=== PATIENT | female | born 1990 | race Hispanic/Latino ===

== ENCOUNTER 2018-01-21 09:54 | Emergency (ER) | payer OTHER ==
[2018-01-21 11:04] LABS: KETONE, URINE AUTO RFX NEGATIVE (NEGATIVE); MUCUS, URINE RFX SMALL (NEGATIVE); NITRITE, URINE AUTO RFX NEGATIVE (NEGATIVE); RBC, URINE AUTO RFX 2 /HPF (0-3); SPECIFIC GRAVITY UR AUTO RFX 1.026 (1.002-1.035); SQUAM EPITHELIAL CELL UR AURFX 4 /HPF (0-6); WBC, URINE AUTO RFX 4 /HPF (0-3)
[2018-01-21 11:05] LABS: LEUKOCYTE ESTERASE UR AUTO RFX 2+ (NEGATIVE)
[2018-01-21 12:37] LABS: CHLAMYDIA DNA AMPLIFICATION NEGATIVE (NEGATIVE); GC DNA AMPLIFICATION NEGATIVE (NEGATIVE)
== END 2018-01-21 11:48 | disposition home or self-care (01) ==
LOC: M ED 09:54
DX: N76.5 Ulceration of vagina (principal); Z11.3 Encounter for screening for infections with a predominantly sexual mode of transmission; E05.90 Thyrotoxicosis, unspecified without thyrotoxic crisis or storm
CPT/HCPCS: 81001

== ENCOUNTER → 2018-06-03 | Outpatient (REF) | payer OTHER | LOC: M LAB REF 17:02 | DX: R87.613 High grade squamous intraepithelial lesion on cytologic smear of cervix (HGSIL) (principal) | CPT/HCPCS: G0123 ==

== ENCOUNTER → 2018-09-23 | Outpatient (REF) | payer OTHER | LOC: M LAB REF 19:28 | PROVIDERS: ATTEND Obstetrics & Gynecology | DX: D06.9 Carcinoma in situ of cervix, unspecified (principal) ==

== ENCOUNTER → 2018-10-18 | Outpatient (CLI) | payer OTHER ==
[2018-10-18 17:31] LABS: FREE T4 1.31 NG/DL (0.76-1.46); THYROID STIMULATING HORMONE 1.56 uIU/ML (0.358-3.740)
[2018-10-18 17:33] LABS: ESTRADIOL 27.5 PG/ML; LUTEINIZING HORMONE 3.9 mIU/mL
[2018-10-18 17:34] LABS: FOLLICLE STIMULATING HORMONE 6.1 mIU/mL
== END ==
LOC: M LAB 16:38
PROVIDERS: ATTEND Obstetrics & Gynecology
DX: N97.9 Female infertility, unspecified (principal)

== ENCOUNTER → 2018-11-05 | Outpatient (CLI) | payer OTHER | LOC: M LAB 15:09 | PROVIDERS: ATTEND Obstetrics & Gynecology | DX: N97.9 Female infertility, unspecified (principal) ==

== ENCOUNTER → 2019-04-07 | Outpatient (CLI) | payer OTHER ==
[2019-04-07 11:38] LABS: FREE T4 1.1 NG/DL (0.76-1.46); THYROID STIMULATING HORMONE 2.94 uIU/ML (0.358-3.740)
== END ==
LOC: M LAB 09:47
PROVIDERS: ATTEND Obstetrics & Gynecology
DX: Z13.29 Encounter for screening for other suspected endocrine disorder (principal); N76.0 Acute vaginitis
CPT/HCPCS: 36415; 84439; 84443; G0123

== ENCOUNTER 2019-07-19 19:06 | Emergency (ER) | payer OTHER ==
[~2019-07-19] VITALS: Ht 165.1 cm; Wt 71.8 kg
[2019-07-19] MEDS ORDERED: DAYT1CAP9 PO (19:18)
[2019-07-19] MEDS ORDERED: IBUPROFEN 800 MG TAB PO ONE (19:30)
[2019-07-19 20:04] LABS: INFLUENZA A AMPLIFICATION NEGATIVE (NEGATIVE); INFLUENZA B AMPLIFICATION NEGATIVE (NEGATIVE)
[2019-07-19] MEDS ORDERED: PENI500T PO (20:30)
[2019-07-19] MEDS ORDERED: PENICILLIN V POTASSIUM 500 MG TAB PO ONE (20:30)
[2019-07-19 20:33] VITALS: BP 132/72
== END 2019-07-19 20:44 | disposition home or self-care (01) ==
LOC: M ED 19:06
DX: J02.0 Streptococcal pharyngitis (principal); E05.90 Thyrotoxicosis, unspecified without thyrotoxic crisis or storm

== ENCOUNTER → 2020-09-06 | Outpatient (REF) | payer OTHER ==
[~2020-09-06] MED LIST: DAYT1CAP9 PO; PENI500T PO
[2020-09-06 18:22] LABS: HCG, SERUM QUALITATIVE POSITIVE (NEGATIVE)
[2020-09-06 18:32] LABS: HCG, SERUM QUANTITATIVE 688 MIU/ML
== END ==
LOC: M LAB REF 17:11
PROVIDERS: ATTEND Physician Assistant Medical
DX: Z32.00 Encounter for pregnancy test, result unknown (principal)

== ENCOUNTER 2020-09-11 13:09 | Emergency (ER) | payer OTHER ==
[~2020-09-11] VITALS: Ht 165.1 cm; Wt 70.6 kg
[2020-09-11 14:45] LABS: BASO # 0.1 10^3/uL (0.0-0.2); BASO % 0.5 % (0.0-1.0); EOS # 0.1 10^3/uL (0.0-0.5); EOS % 0.5 % (0.0-3.0); HEMATOCRIT 44.9 % (36.0-47.0); LYMPH # 2.1 10^3/uL (1.5-5.0); LYMPH % 18.6 % (24.0-44.0); MEAN CORPUSCULAR HEMOGLOBIN 29.1 pg (27.0-33.0); MEAN CORPUSCULAR HGB CONC 33.4 g/dl (32.0-36.5); MONO # 0.6 10^3/uL (0.0-0.8); MONO % 5.5 % (2.0-8.0); NEUTROPHILS # 8.2 10^3/uL (1.5-8.5); NEUTROPHILS % 74.6 % (36.0-66.0); PLATELET COUNT, AUTOMATED 334 10^3/uL (150-450); RED BLOOD COUNT 5.16 10^6/uL (4.00-5.40); WHITE BLOOD COUNT 11.1 10^3/uL (4.0-10.0)
--- NOTE | 2020-09-11 15:24 | REP ---
INDICATION: VAGINAL BLEEDING. COMPARISON: None. TECHNIQUE: Real-time sonographic evaluation of pelvis performed utilizing transabdominal and endovaginal technique. FINDINGS: Uterus measures 8.0 x 4.2 x 4.7 cm. The endometrial echo complex measures 8 mm. No gestational sac is seen in the endometrial canal. The right ovary is not visualized. Left ovary measures 2.3 x 2.7 x 2.0 cm with a small cystic structure 1.9 x 1.9 x 1.2 cm, probably representing a corpus luteum. There is no evidence of left ovarian torsion with duplex Doppler evaluation. IMPRESSION: No gestational sac seen in the uterus. Small cystic structure left ovary 1.9 cm. No left ovarian torsion. Right ovary not seen. Otherwise no evidence of adnexal mass or free fluid. Differential diagnosis would include very early intrauterine , missed AB, or ectopic . Suggest correlation with serial quantitative beta HCG values, and follow-up ultrasound if necessary. <Electronically signed by Pérez Bustillo > 09/11/20 [id number]
[2020-09-11 15:57] LABS: CHLAMYDIA DNA AMPLIFICATION NEGATIVE (NEGATIVE); GC DNA AMPLIFICATION NEGATIVE (NEGATIVE)
[2020-09-11 16:10] VITALS: BP 139/68
[2020-09-11] MEDS ORDERED: METR0.7533 TOP (16:31)
== END 2020-09-11 16:47 | disposition home or self-care (01) ==
LOC: M ED 13:09
DX: O20.9 Hemorrhage in early pregnancy, unspecified (principal); O23.591 Infection of other part of genital tract in pregnancy, first trimester; O34.81 Maternal care for other abnormalities of pelvic organs, first trimester; N83.201 Unspecified ovarian cyst, right side; Z3A.00 Weeks of gestation of pregnancy not specified

== ENCOUNTER → 2020-09-13 | Outpatient (CLI) | payer OTHER ==
[~2020-09-13] MED LIST changes: +METR0.7533 TOP
== END ==
LOC: M LAB 14:13
PROVIDERS: ATTEND Physician Assistant
DX: Z32.00 Encounter for pregnancy test, result unknown (principal)

== ENCOUNTER → 2020-12-14 | Outpatient (CLI) | payer OTHER | LOC: M WHC 09:19 | PROVIDERS: ATTEND Obstetrics & Gynecology | DX: Z53.8 Procedure and treatment not carried out for other reasons (principal) ==

== ENCOUNTER → 2020-12-28 | Outpatient (CLI) | payer OTHER ==
--- NOTE | 2020-12-29 03:40 | REP ---
INDICATION: ANATOMY COMPARISON: None. TECHNIQUE: Transabdominal obstetrical ultrasound with color Doppler evaluation. FINDINGS: Examination demonstrates a single live intrauterine in variable presentation. motion is identified by technologist. Placenta is noted anterior and grade 1 without evidence for placenta previa or abruption. Amniotic fluid volume is normal. Cervix measures 3.8 cm in length and appears closed.. Selected gestational age: 20 weeks 5 days with MARCELINO 05/12/2021. Gestational age by current measurements 20 weeks 4 days with MARCELINO 05/13/2021. FHR equals 140 beats per minute. Estimated weight 368 grams (42ndpercentile). Anatomical assessment demonstrates normal structures including cranium, choroid plexus, cavum, cerebellum/posterior fossa, facial features, lungs, four-chamber heart/ventricular outflow tracts, diaphragm, stomach, cord insertion, kidneys/bladder, spine, and extremities. Two vessel cord noted. IMPRESSION: Single live intrauterine in variable presentation. Two vessel cord. Remainder of the anatomical assessment is complete and normal. <Electronically signed by Herrera Moise > 12/29/20 [id number]
== END ==
LOC: M WHC 10:06
PROVIDERS: ATTEND Obstetrics & Gynecology
DX: Z36.89 Encounter for other specified antenatal screening (principal); Z3A.20 20 weeks gestation of pregnancy

== ENCOUNTER → 2021-01-13 | Outpatient (REF) | payer OTHER | LOC: M PLALAB 09:49 | PROVIDERS: ATTEND Obstetrics & Gynecology | DX: Z3A.22 22 weeks gestation of pregnancy (principal); Z53.8 Procedure and treatment not carried out for other reasons ==

== ENCOUNTER → 2021-02-07 | Outpatient (CLI) | payer OTHER ==
[2021-02-07 10:48] LABS: HEMATOCRIT 36.7 % (36.0-47.0); HEMOGLOBIN 11.7 g/dl (12.0-15.5); MEAN CORPUSCULAR HEMOGLOBIN 28.5 pg (27.0-33.0); MEAN CORPUSCULAR HGB CONC 31.9 g/dl (32.0-36.5); MEAN CORPUSCULAR VOLUME 89.3 fl (80.0-96.0); PLATELET COUNT, AUTOMATED 244 10^3/uL (150-450); RED BLOOD COUNT 4.11 10^6/uL (4.00-5.40); WHITE BLOOD COUNT 7.5 10^3/uL (4.0-10.0)
[2021-02-07 11:23] LABS: FREE T4 0.87 NG/DL (0.76-1.46); THYROID STIMULATING HORMONE 1.85 uIU/ML (0.358-3.740)
== END ==
LOC: M PLALAB 07:38
PROVIDERS: ATTEND Obstetrics & Gynecology
DX: Z34.92 Encounter for supervision of normal pregnancy, unspecified, second trimester (principal); Z3A.22 22 weeks gestation of pregnancy

== ENCOUNTER → 2021-02-07 | Outpatient (REF) | payer OTHER ==
[~2021-02-07] MED LIST changes: +ASPI81CH33 PO; +PRENTAB9 PO; +VALT500T PO
== END ==
LOC: M PLALAB 14:14
PROVIDERS: ATTEND Obstetrics & Gynecology
DX: O99.810 Abnormal glucose complicating pregnancy (principal); Z53.8 Procedure and treatment not carried out for other reasons

== ENCOUNTER → 2021-02-09 | Outpatient (CLI) | payer OTHER ==
[~2021-02-09] MED LIST changes: -ASPI81CH33 PO; -PRENTAB9 PO; -VALT500T PO
== END ==
LOC: M WHC 15:38
PROVIDERS: ATTEND Obstetrics & Gynecology
DX: Z34.82 Encounter for supervision of other normal pregnancy, second trimester (principal); Z3A.26 26 weeks gestation of pregnancy

== ENCOUNTER → 2021-02-15 | Outpatient (CLI) | payer OTHER ==
[~2021-02-15] MED LIST changes: +ASPI81CH33 PO; +PRENTAB9 PO; +VALT500T PO
== END ==
LOC: M WHC 10:50
PROVIDERS: ATTEND Obstetrics & Gynecology
DX: Z36.89 Encounter for other specified antenatal screening (principal); Z3A.28 28 weeks gestation of pregnancy

== ENCOUNTER → 2021-03-01 | Outpatient (CLI) | payer OTHER ==
[~2021-03-01] MED LIST changes: -ASPI81CH33 PO; -PRENTAB9 PO; -VALT500T PO
== END ==
LOC: M LAB 07:14
PROVIDERS: ATTEND Obstetrics & Gynecology
DX: O99.810 Abnormal glucose complicating pregnancy (principal)

== ENCOUNTER → 2021-03-01 | Outpatient (CLI) | payer OTHER ==
--- NOTE | 2021-03-01 22:35 | REP ---
INDICATION: GROWTH/2 VESSEL CORD COMPARISON: 02/15/2021 TECHNIQUE: Transabdominal obstetrical ultrasound with color Doppler evaluation. FINDINGS: Examination demonstrates a single live intrauterine in cephalic presentation. motion is identified by technologist. Placenta is noted anterior and grade 1 without evidence for placenta previa or abruption. Amniotic fluid volume is normal. Cervix measures 3.0 cm in length and appears closed.. Selected gestational age: 29 weeks 5 days with MARCELINO 05/12/2021. Gestational age by current measurements 30 weeks 5 days with MARCELINO 05/05/2021. FHR equals 128 beats per minute. BPD: 8.0 cm at 32 weeks 0 days HC: 27.9 cm at 30 weeks 4 days AC: 26.6 cm at 30 weeks 5 days FL: 5.9 cm at 30 weeks 5 days HL: 5.1 cm at 30 weeks 0 days HC/AC: 1.05 Estimated weight 1640 grams (75thpercentile). TREE: 15.6 cm IMPRESSION: Single live intrauterine in cephalic presentation demonstrating appropriate interval growth. <Electronically signed by Herrera Moise > 03/01/21 [id number]
== END ==
LOC: M WHC 12:47
PROVIDERS: ATTEND Obstetrics & Gynecology
DX: Z36.89 Encounter for other specified antenatal screening (principal); Z3A.29 29 weeks gestation of pregnancy

== ENCOUNTER → 2021-03-15 | Outpatient (CLI) | payer OTHER ==
--- NOTE | 2021-03-15 11:55 | REP ---
INDICATION: GROWTH 2 VESSEL CORD COMPARISON: 03/01/2021 TECHNIQUE: Transabdominal obstetrical ultrasound with color Doppler evaluation. FINDINGS: Examination demonstrates a single live intrauterine in cephalic presentation. motion is identified by technologist. Placenta is noted anterior and grade 1 without evidence for placenta previa or abruption. Amniotic fluid volume is normal. Cervix measures 3.1 cm in length and appears closed. Known 2 vessel cord again noted.. Selected gestational age: 31 weeks 5 days with MARCELINO 05/12/2021. Gestational age by current measurements 32 weeks 5 days with MARCELINO 05/05/2021. FHR equals 143 beats per minute. BPD: 8.2 cm at 32 weeks 6 days HC: 29.2 cm at 32 weeks 1 day AC: 30.5 cm at 34 weeks 3 days FL: 6.2 cm at 32 weeks 0 days HL: 5.5 cm at 32 weeks 0 days HC/AC: 0.96 Estimated weight 2175 grams (87thpercentile). TREE: 16.3 cm IMPRESSION: Single live advanced gestation in cephalic presentation. Known 2 vessel cord. Amniotic fluid index normal. Growth is within normal range. <Electronically signed by Herrera Moise > 03/15/21 [id number]
== END ==
LOC: M WHC 10:54
PROVIDERS: ATTEND Obstetrics & Gynecology
DX: Z36.89 Encounter for other specified antenatal screening (principal); Z3A.31 31 weeks gestation of pregnancy

== ENCOUNTER → 2021-04-13 | Outpatient (REF) | payer OTHER | LOC: M SFHCWAGY 13:52 | PROVIDERS: ATTEND Obstetrics & Gynecology | DX: Z36.85 Encounter for antenatal screening for Streptococcus B (principal) ==

== ENCOUNTER → 2021-04-14 | Outpatient (CLI) | payer OTHER ==
--- NOTE | 2021-04-14 15:20 | REP ---
INDICATION: GROWTH, HYPERTENSTION, 2 VESSEL CORD. COMPARISON: Comparison study March 15, 2021. TECHNIQUE: Transabdominal obstetric sonography. FINDINGS: Scanning through the gravid uterus demonstrates a viable single intrauterine gestation in cephalic lie. motion is observed and heart rate is recorded at 165 beats per minute. A anterior placenta is seen, grade 1, without evidence of placenta previa. Closed cervical length is measured at 3.7 cm transabdominally. No extrauterine abnormality is observed. Amniotic fluid is subjectively normal TREE is 14.2 cm.. Two vessel umbilical cord seen. Biometry chart: BPD 9.2 cm, 37 weeks 3 days Head circumference 33.1 cm, 37 weeks 5 days Abdominal circumference 32.8 cm, 36 weeks 5 days Femur length 7.1 cm, 36 weeks 2 days Humeral length 6.3 cm, 36 weeks 4 days HC AC ratio normal 1.01 Cephalic index normal 0.79 Estimated weight 3043 g, 6 lb 11 oz, 73rd percentile for 36 weeks 0 days Biophysical profile score 8 out of a possible 8 IMPRESSION: Viable single intrauterine gestation at 37 weeks 0 days by today's composite sonographic criteria. MARCELINO by today's sonography May 05, 2021. No complication identified. Expected gestational age estimate from known MARCELINO of May 12, 2021 is 36 weeks 0 days. <Electronically signed by Indra Rodriguez > 04/14/21 [id number]
== END ==
LOC: M WHC 11:25
PROVIDERS: ATTEND Advanced Practice Midwife
DX: O10.013 Pre-existing essential hypertension complicating pregnancy, third trimester (principal); Z3A.37 37 weeks gestation of pregnancy

== ENCOUNTER 2021-05-03 10:59 | Inpatient (IN) | payer OTHER ==
[~2021-05-03] VITALS: Ht 165.1 cm; Wt 83.5 kg
--- OUTSIDE RECORDS SUMMARY | 2021-05-03 11:02 | CCD ---
Author Author [facility] Organization [facility] Address Unknown Phone Unavailable Care Team Providers Care Public Health Dietitian Name Role Phone Jose Martin Hull Unavailable PROBLEMS Type Condition ICD9-CM Code [id number] Code Onset Dates Condition S tatus W/U Status Risk SNOMED Code Notes Problem Supervision of other normal Z34.80 Ac tive confirm 384589826 Problem Umbilical abnormality Q89.9 Active confirmed 286658036 Problem History of thyroid storm Z86.39 Active confirmed 787044474 Problem Hyperthyroidism E05.90 Active confirmed 3448 6009 Problem Hyperlipidemia E78.5 Active confirmed 50171 004 ALLERGIES No Known Allergies ENCOUNTERS from 1992 to 2021-03-10 Encounter Location Date Provider Diagnosis [facility] [address] [place] [address] [place] [address] Feb, Jose Martin Hull Supervision of other high risk pregnancies, third trimester O09.893 and 30 weeks gestation of Z3A.30 IMMUNIZATIONS No Information SOCIAL HISTORY Tobacco Use: Social History Observation Description Date Details (start date - stop date) Never Smoker Sex Assigned At : Social History Observation Description Sex Assigned At Unknown Education: Question Answer Notes Level of Education: Finished College Language: Question Answer Notes Languages spoken: Sammarinese Holiness: Question Answer Notes Holiness 33 None Alcohol Screening: Question Answer Notes Did you have a drink containing alcohol in the past year? No Points 0 Interpretation Negative Tobacco Use: Question Answer Notes Are you a: never smoker REASON FOR REFERRAL No Information VITAL SIGNS Weight 176 lbs Feb, Height 65 in Feb, BMI 29.288 kg/m2 Feb, Blood pressure systolic 142 mm Hg Feb, Blood pressure diastolic 80 mm Hg Feb, MEDICATIONS Medication SIG (Take, Route, Frequency, Duration) Notes Start Da te End Date Status 28-0.8 MG 1 tablet Orally Once a day Active PROCEDURES No Information RESULTS No Results REASON FOR VISIT 4 wk pn MEDICAL (GENERAL) HISTORY Type Description Date Medical History hyperthyroidism Medical History Vaginal HSV-1 Goals Section No Information Health Concerns No Information MEDICAL EQUIPMENT No Information MENTAL STATUS No Information FUNCTIONAL STATUS No Information ASSESSMENTS Encounter Date Diagnosis Assessment Notes Treatment Notes Treatm ent Clinical Notes Feb, Supervision of other high ri sk pregnancies, third trimester (ICD-10 - O09.893) Feb, 30 weeks gestation of (ICD-10 - Z3A.30 ) PLAN OF TREATMENT Next Appt Details 2 Weeks Reason: Provider Name:Kathleen Darby, 2021-03-24 11:20:00 AM, [address] [facility], , [place], [address], Insurance Providers Payer Name Payer Address Payer Phone Insured Name Patient Relati onship to Insured Coverage Start Date Coverage End Date [facility] [employer] [address] [place] [address] Xenia Humphries
--- OUTSIDE RECORDS SUMMARY | 2021-05-03 11:02 | CCD ---
Author Author [facility] Organization [facility] Address Unknown Phone Unavailable Care Team Providers Care [employer] [facility] Manager Name Role Phone AuraGui martiny Unavailable PROBLEMS Type Condition ICD9-CM Code RBX72-NM Code Onset Dates Condition S tatus W/U Status Risk SNOMED Code Notes Problem Umbilical abnormality Q89.9 Active confirmed 313539480 Problem Essential hypertension affecting in third tr imester O10.013 Active confirmed 32155972 Problem History of thyroid storm Z86.39 Active confirmed 748652101 Problem Hyperthyroidism E05.90 Active confirmed 3448 6009 Problem Hyperlipidemia E78.5 Active confirmed 61197 004 Problem Supervision of other normal Z34.80 Ac tive confirm [id number] ALLERGIES No Known Allergies ENCOUNTERS from 1992 to 2021-04-22 Encounter Location Date Provider Diagnosis [facility] [facility] [phone] [place] [address] Mar, Jane Myers Supervision of other high risk pregnancies, third trimester O09.893 ; Essential hypertension affecting in third trimester O10.013 and 35 weeks gestation of Z3A.35 IMMUNIZATIONS Vaccine Route Administration Date Status TDAP 0.5mL Boostrix IM Intramuscular Mar 24, 2021 Administere d SOCIAL HISTORY Tobacco Use: Social History Observation Description Date Details (start date - stop date) Never Smoker Sex Assigned At : Social History Observation Description Sex Assigned At Unknown Education: Question Answer Notes Level of Education: Finished College Language: Question Answer Notes Languages spoken: Occitan Orthodoxy: Question Answer Notes Orthodoxy 33 None Tobacco Use: Question Answer Notes Are you a: never smoker REASON FOR REFERRAL No Information VITAL SIGNS Weight 180.2 lbs Mar, Weight-kg 81.74 kg Mar, Height 65 in Mar, BMI 29.987 kg/m2 Mar, Blood pressure systolic 132 mm Hg Mar, Blood pressure diastolic 74 mm Hg Mar, MEDICATIONS Medication SIG (Take, Route, Frequency, Duration) Notes Start Da te End Date Status 28-0.8 MG 1 tablet Orally Once a day Active Valtrex 500 MG 1 tablet Orally Once a day for 30 day(s) Mar, Active Aspirin 81 81 MG 1 tablet Orally Once a day for 90 day(s) Mar, Active PROCEDURES from 1992 to 2021-04-22 Procedure Date Ordered Result Body Site non-stress test 2021-04-13 N/A RESULTS Component Value Reference Range GROUP B STREP CULTURE Reviewed date:04/18/2021 08:53:06 Interpretation: Performing Lab:[facility], [facility] [address] [facility] [address] , [place] [address] REASON FOR VISIT 1 wk pn MEDICAL (GENERAL) HISTORY Type Description Date Medical History hyperthyroidism Medical History Vaginal HSV-1 Goals Section No Information Health Concerns No Information MEDICAL EQUIPMENT No Information MENTAL STATUS No Information FUNCTIONAL STATUS No Information ASSESSMENTS Encounter Date Diagnosis Assessment Notes Treatment Notes Treatm ent Clinical Notes Mar, Supervision of other high ri sk pregnancies, third trimester (ICD-10 - O09.893) Mar, Essential hypertension affec ting in third trimester (ICD- 10 - O10.013) Mar, 35 weeks gestation of (ICD-10 - Z3A.35 ) PLAN OF TREATMENT Next Appt Details 1 Week Reason:, NST Provider Name:Yassine Oglesby, 2021-04-26 1 0:00:00 AM, [address] [facility], , [place], [address], Follow Up:1 WeekPrenatal, NST Insurance Providers Payer Name Payer Address Payer Phone Insured Name Patient Relati onship to Insured Coverage Start Date Coverage End Date [facility] HEALTH INSURANCE [address] [facility] [id number] Xenia Humphries
--- OUTSIDE RECORDS SUMMARY | 2021-05-03 11:02 | CCD ---
Author Author [facility] Organization [facility] Address Unknown Phone Unavailable Support Name Relationship Address Phone WAHOO Next Of Kin [address] [id number] JENNIFER HUPMHRIES Next Of Kin [id number] [place] [id number] AAFES Next Of Kin [address] [id number] KEMIJENNIFER SERRANO Next Of Kin [address] [place] [address] Jennifer Humphries [facility] [address] [address] Unavailable Re-disclosure Warning The records that you are about to access may contain information from federally-assisted alcohol or drug abuse programs. If such information is present, then the following federally mandated warning applies: This information has been disclosed to you from records protected by federal confidentiality rules (42 CFR part 2). The federal rules prohibit you from making any further disclosure of this information unless further disclosure is expressly permitted by the written consent of the person to whom it pertains or as otherwise permitted by 42 CFR part 2. A general authorization for the release of medical or other information is NOT sufficient for this purpose. The Federal rules restrict any use of the information to criminally investigate or prosecute any alcohol or drug abuse patient.The records that you are about to access may contain highly sensitive health information, the redisclosure of which is protected by Article 27-F of the [place] State Public Health law. If you continue you may have access to information: Regarding HIV / AIDS; Provided by facilities licensed or operated by the [facility] Office of Mental Health; or Provided by the [facility] Office for People With Developmental Disabilities. If such information is present, then the following [facility] mandated warning applies: This information has been disclosed to you from confidential records which are protected by state law. State law prohibits you from making any further disclosure of this information without the specific written consent of the person to whom it pertains, or as otherwise permitted by law. Any unauthorized further disclosure in violation of state law may result in a fine or snf sentence or both. A general authorization for the release of medical or other information is NOT sufficient authorization for further disc losure. Family History Family Member Name Family Member Gender Family Member Status Date o f Status Description Data Source(s) Unknown Unknown Problem MEDENT ([facility], ) Encounters Encounter Providers Location Date Indications Data Source(s ) ( COB) [facility] [address] [place] [address] 04/26/2021 12:00:00 AM EDT eCW1 ([facility]) ( COB) [facility] [address] [place] [address] 04/19/2021 12:00:00 AM EDT eCW1 ([facility]) ( COB) [facility] [address] [place] [address] 04/13/2021 12:00:00 AM EDT eCW1 ([facility]) ( COB) [facility] [address] [place] [address] 04/06/2021 12:00:00 AM EDT eCW1 ([facility]) ( ESTOB) [facility] Est OB [address] [place] [address] 03/24/2021 12:00:00 AM EDT eCW1 ([facility]) ( ESTOB) [facility] Est [facility] [address] [place] [address] 03/09/2021 12:00:00 AM EDT eCW1 ([facility]) [place] [address] [facility] [address] 03/01/2021 12:00:00 AM EDT eCW1 ([facility]) ( ESTOB) [facility] Est OB [address] [place] [address] 02/09/2021 12:00:00 AM EDT eCW1 ([facility]) [place] [address] [facility] [address] 02/07/2021 12:00:00 AM EDT eCW1 ([facility]) ( ESTOB) [facility] Est OB [address] [place] [address] 01/13/2021 12:00:00 AM EDT eCW1 ([facility]) ( ESTOB) [facility] Est OB [address] [place] [address] 12/14/2020 12:00:00 AM EDT eCW1 ([facility]) Unknown [address] [facility] [place] [address] 11/17/2020 12:00:00 AM EDT eCW1 ([facility]) ( ESTOB) [facility] Est OB [address] [place] [address] 11/09/2020 12:00:00 AM EDT eCW1 ([facility]) ( NEWOB) [facility] New OB Visit [address] [place] [address] 10/04/2020 12:00:00 AM EDT eCW1 ([facility]) Immunizations Vaccine Date Status Description Data Source(s) Tdap 03/24/2021 01:16:00 PM EDT completed e CW1 ([facility]) Tdap 03/24/2021 01:16:00 PM EDT completed e CW1 ([facility]) Tdap 03/24/2021 01:16:00 PM EDT completed e CW1 ([facility]) Tdap 03/24/2021 01:16:00 PM EDT completed e CW1 ([facility]) Tdap 03/24/2021 01:16:00 PM EDT completed e CW1 ([facility]) Medications Medication Brand Name Start Date Product Form Dose Route Admi nistrative Instructions Pharmacy Instructions Status Indications Reaction Description Data Source(s) valacyclovir 500 MG Oral Tablet [Valtrex] Valtrex 500 MG Lorraine trex 500 MG 03/24/2021 12:00:00 AM EDT 1.0 {tablet} active Valtrex 500 MG eCW1 ([facility]) valacyclovir 500 MG Oral Tablet [Valtrex] Valtrex 500 MG Lorraine trex 500 MG 03/24/2021 12:00:00 AM EDT 1.0 {tablet} active Valtrex 500 MG eCW1 ([facility]) valacyclovir 500 MG Oral Tablet [Valtrex] Valtrex 500 MG Lorraine trex 500 MG 03/24/2021 12:00:00 AM EDT 1.0 {tablet} active Valtrex 500 MG eCW1 ([facility]) Aspirin 81 81 MG Aspirin 81 81 MG 03/24/2021 12:00:00 AM EDT 1.0 {tablet} active Aspirin 81 81 MG eCW1 ([facility] includes the [facility]) Aspirin 81 81 MG Aspirin 81 81 MG 03/24/2021 12:00:00 AM EDT 1.0 {tablet} active Aspirin 81 81 MG eCW1 ([facility] includes the [facility]) Aspirin 81 81 MG Aspirin 81 81 MG 03/24/2021 12:00:00 AM EDT 1.0 {tablet} active Aspirin 81 81 MG eCW1 ([facility] includes the [facility]) valacyclovir 500 MG Oral Tablet [Valtrex] Valtrex 500 MG Lorraine trex 500 MG 03/24/2021 12:00:00 AM EDT 1.0 {tablet} active Valtrex 500 MG eCW1 ([facility]) Aspirin 81 81 MG Aspirin 81 81 MG 03/24/2021 12:00:00 AM EDT 1.0 {tablet} active Aspirin 81 81 MG eCW1 ([facility] includes the [facility]) Aspirin 81 81 MG Aspirin 81 81 MG 03/24/2021 12:00:00 AM EDT 1.0 {tablet} active Aspirin 81 81 MG eCW1 ([facility] includes the [facility]) valacyclovir 500 MG Oral Tablet [Valtrex] Valtrex 500 MG Lorraine trex 500 MG 03/24/2021 12:00:00 AM EDT 1.0 {tablet} active Valtrex 500 MG eCW1 ([facility]) Insurance Providers Payer name Policy type / Coverage type Policy ID Covered alliance party ID Covered alliance party's relationship to foss Policy Foss Plan Information [facility] [id number] [facility] [id number] Select (2017) Health Maintenance Organization (HMO) [id number] Family Dependent [id number] Select (2017) Health Maintenance Organization (HMO) [id number] Family Dependent [id number] Select (2017) Health Maintenance Organization (HMO) [id number] Family Dependent [id number] Select (2017) Health Maintenance Organization (HMO) [id number] Family Dependent [id number] ANSI-Not a Secondary Insurance [id number] ANSI-Not a Secondary Insurance [id number] Problems, Conditions, and Diagnoses Code Display Name Description Problem Type Effective Dates Data Source(s) O10.013 98081361 Essential hypertension affecting in third trimester Problem 03/24/2021 12:00:00 AM EDT eCW1 ([facility]) Q89.9 Congenital malformation Umbilical abnormality Problem 01/13/2021 12:00:00 AM EDT eCW1 ([facility]) Z34.80 care Supervision of other normal P roblem 10/04/2020 12:00:00 AM EDT eCW1 ([facility]) Surgeries/Procedures Procedure Description Date Indications Data Source(s) NONSTRESS TEST 04/26/2021 12:00:00 AM EDT eCW1 ([facility]) NONSTRESS TEST 04/13/2021 12:00:00 AM EDT eCW1 ([facility]) NONSTRESS TEST 04/06/2021 12:00:00 AM EDT eCW1 ([facility]) TDAP VACCINE 7/> YR IM 03/24/2021 12:00:00 AM EDT eCW1 ([facility]) Results ID Date Data Source GROUP B STREP CULTURE 04/13/2021 12:00:00 AM EDT eCW1 ([facility] includes the [facility]) Name Value Range Interpretation Code Description Data Aline rce(s) Supporting Document(s) GROUP B STREP CULTURE eCW1 ([facility]) ID Date Data Source [id number] 12/05/2020 12:00:00 AM EDT [place] Name Value Range Interpretation Code Description Data Aline rce(s) Supporting Document(s) LUMIRADX SARS-COV-2 AG TEST Negative [place] [facility] This lab was ordered by [id number] and reported by [facility] Pharm[facility]. ID Date Data Source [id number] 11/24/2020 12:00:00 AM EDT [place] Name Value Range Interpretation Code Description Data Aline rce(s) Supporting Document(s) SARS-CoV2 Rapid Antigen Negative [place] This lab [facility] by [facility] and reported by [facility]. Procedure Social History Code Duration Value Status Description Data Source(s ) Smoking 04/21/2021 12:00:00 AM EDT Never Smoker completed Never S moker eCW1 ([facility]) Smoking 04/21/2021 12:00:00 AM EDT Never Smoker completed Never S moker eCW1 ([facility]) Smoking 04/18/2021 12:00:00 AM EDT Never Smoker completed Never S moker eCW1 ([facility]) Smoking 04/18/2021 12:00:00 AM EDT Never Smoker completed Never S moker eCW1 ([facility]) Smoking 04/11/2021 12:00:00 AM EDT Never Smoker completed Never S moker eCW1 ([facility]) Smoking 03/09/2021 12:00:00 AM EDT Never Smoker completed Never S moker eCW1 ([facility]) Smoking 02/09/2021 12:00:00 AM EDT Never Smoker completed Never S moker eCW1 ([facility]) Smoking 02/09/2021 12:00:00 AM EDT Never Smoker completed Never S moker eCW1 ([facility]) Smoking 02/04/2021 12:00:00 AM EDT Never Smoker completed Never S moker eCW1 ([facility]) Smoking 01/13/2021 12:00:00 AM EDT Never Smoker completed Never S moker eCW1 ([facility]) Smoking 12/14/2020 12:00:00 AM EDT Never Smoker completed Never S moker eCW1 ([facility]) Smoking 11/09/2020 12:00:00 AM EDT Never Smoker completed Never S moker eCW1 ([facility]) Smoking 11/09/2020 12:00:00 AM EDT Never Smoker completed Never S moker eCW1 ([facility]) Smoking 10/04/2020 12:00:00 AM EDT Never Smoker completed Never S moker eCW1 ([facility]) Vital Signs ID Date Data Source UNK Name Value Range Interpretation Code Description Data Source(s) Body weight 181.0 [lb_av] 181.0 [lb_av] eCW1 ([facility]) Body weight 82.1 kg 82.1 kg [facility]CW1 [facility] Body height 65 [in_i] 65 [in_i] eCW1 [facility] Body mass index (BMI) [Ratio] 30.12 kg/m2 30.12 kg/m2 eCW1 ([facility]) Systolic blood pressure 130 mm[Hg] 130 mm[Hg] e CW1 ([facility]) Diastolic blood pressure 70 mm[Hg] 70 mm[Hg] eCW1 ([facility]) Body weight 187 [lb_av] 187 [lb_av] eCW1 ([facility] includes the [facility]) Body weight 84.82 kg 84.82 kg eCW1 ([facility] Body height 65 [in_i] 65 [in_i] eCW1 [facility]) Body mass index (BMI) [Ratio] 31.118 kg/m2 31.1 18 kg/m2 eCW1 ([facility]) Systolic blood pressure 130 mm[Hg] 130 mm[Hg] e CW1 ([facility]) Diastolic blood pressure 80 mm[Hg] 80 mm[Hg] eCW1 ([facility]) Body weight 180.2 [lb_av] 180.2 [lb_av] eCW1 ([facility]) Body weight 81.74 kg 81.74 kg eCW1 ([facility] Body height 65 [in_i] 65 [in_i] eCW1 ([facility]) Body mass index (BMI) [Ratio] 29.987 kg/m2 29.9 87 kg/m2 eCW1 ([facility]) Systolic blood pressure 132 mm[Hg] 132 mm[Hg] e CW1 ([facility]) Diastolic blood pressure 74 mm[Hg] 74 mm[Hg] eCW1 ([facility]) Body weight 177 [lb_av] 177 [lb_av] eCW1 ([facility] includes the [facility]) Body height 65 [in_i] 65 [in_i] eCW1 [facility] Body mass index (BMI) [Ratio] 29.454 kg/m2 29.4 54 kg/m2 eCW1 ([facility]) Body weight 178 [lb_av] 178 [lb_av] eCW1 ([facility] includes the [facility]) Body weight 80.74 kg 80.74 kg eCW1 ([facility] Body height 65 [in_i] 65 [in_i] eCW1 [facility]) Body mass index (BMI) [Ratio] 29.621 kg/m2 29.6 21 kg/m2 eCW1 ([facility]) Systolic blood pressure 130 mm[Hg] 130 mm[Hg] e CW1 ([facility]) Diastolic blood pressure 70 mm[Hg] 70 mm[Hg] eCW1 ([facility]) Body weight 176 [lb_av] 176 [lb_av] eCW1 ([facility] includes the [facility]) Body height 65 [in_i] 65 [in_i] eCW1 [facility] Body mass index (BMI) [Ratio] 29.288 kg/m2 29.2 88 kg/m2 eCW1 ([facility]) Systolic blood pressure 142 mm[Hg] 142 mm[Hg] e CW1 ([facility]) Diastolic blood pressure 80 mm[Hg] 80 mm[Hg] eCW1 ([facility]) Body weight 171.6 [lb_av] 171.6 [lb_av] eCW1 ([facility]) Body height 65 [in_i] 65 [in_i] eCW1 [facility] Body mass index (BMI) [Ratio] 28.55 kg/m2 28.55 kg/m2 eCW1 ([facility]) Systolic blood pressure 132 mm[Hg] 132 mm[Hg] e CW1 ([facility]) Diastolic blood pressure 80 mm[Hg] 80 mm[Hg] eCW1 ([facility]) Body weight 169 [lb_av] 169 [lb_av] eCW1 ([facility] includes the [facility]) Body height 65 [in_i] 65 [in_i] eCW1 [facility] Body mass index (BMI) [Ratio] 28.123 kg/m2 28.1 23 kg/m2 eCW1 ([facility]) Systolic blood pressure 150 mm[Hg] 150 mm[Hg] e CW1 ([facility]) Diastolic blood pressure 90 mm[Hg] 90 mm[Hg] eCW1 ([facility]) Body weight 166.6 [lb_av] 166.6 [lb_av] eCW1 ([facility]) Body height 65 [in_i] 65 [in_i] eCW1 [facility] Body mass index (BMI) [Ratio] 27.72 kg/m2 27.72 kg/m2 eCW1 ([facility]) Systolic blood pressure 138 mm[Hg] 138 mm[Hg] e CW1 ([facility]) Diastolic blood pressure 78 mm[Hg] 78 mm[Hg] eCW1 ([facility]) Body mass index (BMI) [Ratio] 26.792 kg/m2 26.7 92 kg/m2 eCW1 ([facility]) Body weight 161 [lb_av] 161 [lb_av] eCW1 ([facility] includes the [facility]) Body weight 73.03 kg 73.03 kg W1 ([facility]) Body height 65 [in_i] 65 [in_i] eCW1 ([facility]) Systolic blood pressure 140 mm[Hg] 140 mm[Hg] e CW1 ([facility]) Diastolic blood pressure 80 mm[Hg] 80 mm[Hg] eCW1 ([facility]) Body weight 158 [lb_av] 158 [lb_av] eCW1 ([facility] includes the [facility]) Body height 65 [in_i] 65 [in_i] eCW1 [facility] Body mass index (BMI) [Ratio] 26.293 kg/m2 26.2 93 kg/m2 W1 ([facility]) Systolic blood pressure 132 mm[Hg] 132 mm[Hg] e CW1 ([facility]) Diastolic blood pressure 82 mm[Hg] 82 mm[Hg] eCW1 ([facility])
--- OUTSIDE RECORDS SUMMARY | 2021-05-03 11:02 | CCD ---
Author Author [facility] Organization [facility] Address Unknown Phone Unavailable Care Team Providers Care Sizing Machine And Drier Operator Name Role Phone Yassine Oglesby Unavailable PROBLEMS Type Condition ICD9-CM Code [id number] Code Onset Dates Condition S tatus W/U Status Risk SNOMED Code Notes Problem Umbilical abnormality Q89.9 Active confirmed 368060130 Problem Essential hypertension affecting in third tr imester O10.013 Active confirmed 31888708 Problem History of thyroid storm Z86.39 Active confirmed 548398496 Problem Hyperthyroidism E05.90 Active confirmed 3448 6009 Problem Hyperlipidemia E78.5 Active confirmed 82152 004 Problem Supervision of other normal Z34.80 Ac tive confirm [id number] ALLERGIES No Known Allergies ENCOUNTERS from 1992 to 2021-04-19 Encounter Location Date Provider Diagnosis [facility] [address] [facility] [phone] [place] [address] Apr, Yassine Oglesby Essential hypertensi on affecting O10.019 IMMUNIZATIONS Vaccine Route Administration Date Status TDAP 0.5mL Boostrix IM Intramuscular Mar 24, 2021 Administere d SOCIAL HISTORY Tobacco Use: Social History Observation Description Date Details (start date - stop date) Never Smoker Sex Assigned At : Social History Observation Description Sex Assigned At Unknown Education: Question Answer Notes Level of Education: Finished College Language: Question Answer Notes Languages spoken: French Methodist: Question Answer Notes Methodist 33 None Tobacco Use: Question Answer Notes Are you a: never smoker REASON FOR REFERRAL No Information VITAL SIGNS Weight 187 lbs Apr, Weight-kg 84.82 kg Apr, Height 65 in Apr, BMI 31.118 kg/m2 Apr, Blood pressure systolic 130 mm Hg Apr, Blood pressure diastolic 80 mm Hg Apr, MEDICATIONS Medication SIG (Take, Route, Frequency, Duration) Notes Start Da te End Date Status 28-0.8 MG 1 tablet Orally Once a day Active Valtrex 500 MG 1 tablet Orally Once a day for 30 day(s) Mar, Active Aspirin 81 81 MG 1 tablet Orally Once a day for 90 day(s) Mar, Active PROCEDURES No Information RESULTS No Results REASON FOR VISIT 1 wk pn MEDICAL (GENERAL) HISTORY Type Description Date Medical History hyperthyroidism Medical History Vaginal HSV-1 Goals Section No Information Health Concerns No Information MEDICAL EQUIPMENT No Information MENTAL STATUS No Information FUNCTIONAL STATUS No Information ASSESSMENTS Encounter Date Diagnosis Assessment Notes Treatment Notes Treatm ent Clinical Notes Apr, Essential hypertension affecting (ICD- 10 - O10.019) PLAN OF TREATMENT Treatment Notes Test Name Order Date non-stress test 2021-04-19 Next Appt Details 1 Week Reason: Provider Name:Yassine Oglesby, 2021-04-26 1 0:00:00 AM, [address] [facility], , [place], [address], Insurance Providers Payer Name Payer Address Payer Phone Insured Name Patient Relati onship to Insured Coverage Start Date Coverage End Date [facility]UR[facility] [id number] [facility] [id number] Xenia Humphries
--- OUTSIDE RECORDS SUMMARY | 2021-05-03 11:02 | CCD ---
Author Author [facility] Organization [facility] Address Unknown Phone Unavailable Care Team Providers Care Whiteprinting Machine Operator Name Role Phone Shanel Landry Unavailable PROBLEMS Type Condition ICD9-CM Code [id number] Code Onset Dates Condition S tatus W/U Status Risk SNOMED Code Notes Problem Supervision of other normal Z34.80 Ac tive confirm [id number] Problem Umbilical abnormality Q89.9 Active confirmed 169082104 Problem History of thyroid storm Z86.39 Active confirmed 036037287 Problem Hyperthyroidism E05.90 Active confirmed 3448 6009 Problem Hyperlipidemia E78.5 Active confirmed 23570 004 ALLERGIES No Known Allergies ENCOUNTERS from 1992 to 2021-02-12 Encounter Location Date Provider Diagnosis [facility] [address] [place] [address] [place] [address] Jan, Shanel Landry History of LEEP (loo p electrosurgical excision procedure) of cervix complicating O34.40 and 26 weeks gestation of Z3A.26 IMMUNIZATIONS No Information SOCIAL HISTORY Tobacco Use: Social History Observation Description Date Details (start date - stop date) Never Smoker Sex Assigned At : Social History Observation Description Sex Assigned At Unknown Education: Question Answer Notes Level of Education: Finished College Language: Question Answer Notes Languages spoken: Kuwaiti Hindu: Question Answer Notes Hindu 33 None Alcohol Screening: Question Answer Notes Did you have a drink containing alcohol in the past year? No Points 0 Interpretation Negative Tobacco Use: Question Answer Notes Are you a: never smoker REASON FOR REFERRAL No Information VITAL SIGNS Weight 171.6 lbs 28 Maycol, 2021 Height 65 in Jan, BMI 28.55 kg/m2 Jan, Blood pressure systolic 132 mm Hg Jan, Blood pressure diastolic 80 mm Hg Jan, MEDICATIONS Medication SIG (Take, Route, Frequency, Duration) [...] Notes Treatment Notes Treatm ent Clinical Notes Jan, History of LEEP (loop electr osurgical excision procedure) of cervix complicating (ICD-10 - O34.40) Jan, 26 weeks gestation of (ICD-10 - Z3A.26 ) PLAN OF TREATMENT Treatment Notes Test Name Order Date WWBC OBS FOLLOW UP OR REPEAT 2021-02-09 Next Appt Details 4 Weeks Reason:PN Provider Name:Jose Martin Hull, 07:30:00 AM, [address] [facility], , [place], [address], Follow Up:4 WeeksPN Insurance Providers Payer Name Payer Address Payer Phone Insured Name Patient Relati onship to Insured Coverage Start Date Coverage End Date [facility]URANCE [address] [place] [address] Xenia Humphries
--- OUTSIDE RECORDS SUMMARY | 2021-05-03 11:02 | CCD ---
Author Author [facility] Organization [facility] Address Unknown Phone Unavailable Care Team Providers Care Mechanical Engineering Manager Name Role Phone MendelYassine Unavailable PROBLEMS Type Condition ICD9-CM Code [id number] Code Onset Dates Condition S tatus W/U Status Risk SNOMED Code Notes Problem Umbilical abnormality Q89.9 Active confirmed 763905572 Problem Essential hypertension affecting in third tr imester O10.013 Active confirmed 08093833 Problem History of thyroid storm Z86.39 Active confirmed 894529449 Problem Hyperthyroidism E05.90 Active confirmed 3448 6009 Problem Hyperlipidemia E78.5 Active confirmed 79546 004 Problem Supervision of other normal Z34.80 Ac tive confirm [id number] ALLERGIES No Known Allergies ENCOUNTERS from 1992 to 2021-04-27 Encounter Location Date Provider Diagnosis [facility] [address] [facility] [phone] [place] [address] Apr, Yassine Oglesby Essential hypertensi on affecting in third trimester O10.013 ; 37 weeks gestation of Z3A.37 and Essential hypertension affecting O10.019 IMMUNIZATIONS Vaccine Route Administration Date Status TDAP 0.5mL Boostrix IM Intramuscular Mar 24, 2021 Administere d SOCIAL HISTORY Tobacco Use: Social History Observation Description Date Details (start date - stop date) Never Smoker Sex Assigned At : Social History Observation Description Sex Assigned At Unknown Education: Question Answer Notes Level of Education: Finished College Language: Question Answer Notes Languages spoken: Tristanian Episcopalian: Question Answer Notes Episcopalian 33 None Tobacco Use: Question Answer Notes Are you a: never smoker REASON FOR REFERRAL No Information VITAL SIGNS Weight 181.0 lbs 12 Oct, 2021 Weight-kg 82.1 kg Apr, Height 65 in Apr, BMI 30.12 kg/m2 Apr, Blood pressure systolic 130 mm Hg Apr, Blood pressure diastolic 70 mm Hg Apr, MEDICATIONS Medication SIG (Take, Route, Frequency, Duration) Notes Start Da te End Date Status 28-0.8 MG 1 tablet Orally Once a day Active Aspirin 81 81 MG 1 tablet Orally Once a day for 90 day(s) Mar, Active Valtrex 500 MG 1 tablet Orally Once a day for 30 day(s) Mar, Active PROCEDURES from 1992 to 2021-04-27 Procedure Date Ordered Result Body Site non-stress test 2021-04-26 N/A RESULTS No Results REASON FOR VISIT 1 WK PN MEDICAL (GENERAL) HISTORY Type Description Date Medical History hyperthyroidism Medical History Vaginal HSV-1 Goals Section No Information Health Concerns No Information MEDICAL EQUIPMENT No Information MENTAL STATUS No Information FUNCTIONAL STATUS No Information ASSESSMENTS Encounter Date Diagnosis Assessment Notes Treatment Notes Treatm ent Clinical Notes Apr, 37 weeks gestation of (ICD-10 - Z3A.37 ) Apr, Essential hypertension affec ting in third trimester (ICD- 10 - O10.013) Apr, Essential hypertension affecting (ICD- 10 - O10.019) PLAN OF TREATMENT No Information Insurance Providers Payer Name Payer Address Payer Phone Insured Name Patient Relati onship to Insured Coverage Start Date Coverage End Date [facility] [address] [facility] [id number] Xenia Humphries
--- OUTSIDE RECORDS SUMMARY | 2021-05-03 11:02 | CCD ---
Author Author [facility] Organization [facility] Address Unknown Phone Unavailable Care Team Providers Care Heel Cover Splitter Name Role Phone AuraGui martiny Unavailable PROBLEMS Type Condition ICD9-CM Code [id number] Code Onset Dates Condition S tatus W/U Status Risk SNOMED Code Notes Problem Umbilical abnormality Q89.9 Active confirmed 575782009 Problem Essential hypertension affecting in third tr imester O10.013 Active confirmed 84726998 Problem History of thyroid storm Z86.39 Active confirmed 263947121 Problem Hyperthyroidism E05.90 Active confirmed 3448 6009 Problem Hyperlipidemia E78.5 Active confirmed 45486 004 Problem Supervision of other normal Z34.80 Ac tive confirm [id number] ALLERGIES No Known Allergies ENCOUNTERS from 1992 to 2021-04-20 Encounter Location Date Provider Diagnosis [facility] [address] [facility] [phone] [place] [address] Mar, Jane Myers Supervision of other high risk pregnancies, third trimester O09.893 ; 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 ; 34 weeks gestation of Z3A.34 and 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 IMMUNIZATIONS Vaccine Route Administration Date Status TDAP 0.5mL Boostrix IM Intramuscular Mar 24, 2021 Administere d SOCIAL HISTORY Tobacco Use: Social History Observation Description Date Details (start date - stop date) Never Smoker Sex Assigned At : Social History Observation Description Sex Assigned At Unknown Education: Question Answer Notes Level of Education: Finished College Language: Question Answer Notes Languages spoken: Brazilian Jew: Question Answer Notes Jew 33 None Tobacco Use: Question Answer Notes Are you a: never smoker REASON FOR REFERRAL No Information VITAL SIGNS Weight 177 lbs Mar, Height 65 in Mar, BMI 29.454 kg/m2 Mar, MEDICATIONS Medication SIG (Take, Route, Frequency, Duration) Notes Start Da te End Date Status 28-0.8 MG 1 tablet Orally Once a day Active Valtrex 500 MG 1 tablet Orally Once a day for 30 day(s) Mar, Active Aspirin 81 81 MG 1 tablet Orally Once a day for 90 day(s) Mar, Active PROCEDURES from 1992 to 2021-04-20 Procedure Date Ordered Result Body Site non-stress test 2021-04-06 N/A RESULTS No Results REASON FOR VISIT 1 WK COB NST MEDICAL (GENERAL) HISTORY Type Description Date Medical History hyperthyroidism Medical History Vaginal HSV-1 Goals Section No Information Health Concerns No Information MEDICAL EQUIPMENT No Information MENTAL STATUS No Information FUNCTIONAL STATUS No Information ASSESSMENTS Encounter Date Diagnosis Assessment Notes Treatment Notes Treatm ent Clinical Notes Mar, Supervision of other high ri pregnancies, third trimester (ICD-10 - O09.893) Mar, Velamentous insertion of umb ilical cord in third trimester (ICD-10 - O43.123) Mar, 34 weeks gestation of (ICD-10 - Z3A.34 ) Mar, HSV-1 (herpes simplex virus 1) infection (ICD-10 - B00.9) PLAN OF TREATMENT Next Appt Details 1 Week Reason:NST, Provider Name:Yassine Oglesby, 2021-04-26 1 0:00:00 AM, [address] [facility], , [place], [address], Follow Up:1 WeekNST, Insurance Providers Payer Name Payer Address Payer Phone Insured Name Patient Relati onship to Insured Coverage Start Date Coverage End Date [facility] INSURANCE [address] [place] [address] Xenia Humphries
--- OUTSIDE RECORDS SUMMARY | 2021-05-03 11:02 | CCD ---
Author Author [facility] Organization [facility] Address Unknown Phone Unavailable Care Team Providers Care Java Core Developer Name Role Phone Shanel Landry Unavailable PROBLEMS Type Condition ICD9-CM Code [id number] Code Onset Dates Condition S tatus W/U Status Risk SNOMED Code Notes Problem Supervision of other normal Z34.80 Ac tive confirm 676615870 Problem Umbilical abnormality Q89.9 Active confirmed 028039913 Problem History of thyroid storm Z86.39 Active confirmed 916110887 Problem Hyperthyroidism E05.90 Active confirmed 3448 6009 Problem Hyperlipidemia E78.5 Active confirmed 97898 004 ALLERGIES No Known Allergies ENCOUNTERS from 1992 to 2021-03-02 Encounter Location Date Provider Diagnosis [facility] [address] [place] [address] [place] [address] Feb, Shanel Landry IMMUNIZATIONS No Information SOCIAL HISTORY Tobacco Use: Social History Observation Description Date Details (start date - stop date) Never Smoker Sex Assigned At : Social History Observation Description Sex Assigned At Unknown Education: Question Answer Notes Level of Education: Finished College Language: Question Answer Notes Languages spoken: Latvian Baptist: Question Answer Notes Baptist 33 None Alcohol Screening: Question Answer Notes Did you have a drink containing alcohol in the past year? No Points 0 Interpretation Negative Tobacco Use: Question Answer Notes Are you a: never smoker REASON FOR REFERRAL No Information VITAL SIGNS No information MEDICATIONS Medication SIG (Take, Route, Frequency, Duration) Notes Start Da te End Date Status 28-0.8 MG 1 tablet Orally Once a day Active PROCEDURES No Information RESULTS No Results REASON FOR VISIT No Information MEDICAL (GENERAL) HISTORY Type Description Date Medical History hyperthyroidism Medical History Vaginal HSV-1 Goals Section No Information Health Concerns No Information MEDICAL EQUIPMENT No Information MENTAL STATUS No Information FUNCTIONAL STATUS No Information ASSESSMENTS No Information PLAN OF TREATMENT Next Appt Details Provider Name:Jose Martin Hull, 07:30:00 AM, [address] [facility], , [place], [address], Insurance Providers Payer Name Payer Address Payer Phone Insured Name Patient Relati onship to Insured Coverage Start Date Coverage End Date [facility] [address] [facility] [id number] Xenia Humphries
--- OUTSIDE RECORDS SUMMARY | 2021-05-03 11:02 | CCD ---
Author Author [facility] Organization [facility] Address Unknown Phone Unavailable Care Team Providers Care Agriculture Consultant Name Role Phone Shanel Landry Unavailable PROBLEMS Type Condition ICD9-CM Code [id number] Code Onset Dates Condition S tatus W/U Status Risk SNOMED Code Notes Problem Supervision of other normal Z34.80 Ac tive confirm 248918109 Problem Umbilical abnormality Q89.9 Active confirmed 708484476 Problem History of thyroid storm Z86.39 Active confirmed 908250545 Problem Hyperthyroidism E05.90 Active confirmed 3448 6009 Problem Hyperlipidemia E78.5 Active confirmed 55276 004 ALLERGIES No Known Allergies ENCOUNTERS from 1992 to 2021-02-08 Encounter Location Date Provider Diagnosis [facility] [address] [place] [address] [place] [address] Jan, Shanel Landry Abnormal glucose aff ecting O99.810 IMMUNIZATIONS No Information SOCIAL HISTORY Tobacco Use: Social History Observation Description Date Details (start date - stop date) Never Smoker Sex Assigned At : Social History Observation Description Sex Assigned At Unknown Education: Question Answer Notes Level of Education: Finished College Language: Question Answer Notes Languages spoken: Chilean Confucianism: Question Answer Notes Confucianism 33 None Tobacco Use: Question Answer Notes [...] Treatment Notes Treatm ent Clinical Notes Jan, Abnormal glucose affecting (ICD-10 - O 99.810) PLAN OF TREATMENT Treatment Notes Test Name Order Date Glucose SHAWN 3 HR Gestational 2021-02-07 Next Appt Details Provider Name:Shanel Landry, 2021-01 03:00:00 PM, [address] [place] [address], , [place], [address], Insurance Providers Payer Name Payer Address Payer Phone Insured Name Patient Relati onship to Insured Coverage Start Date Coverage End Date [facility] INSURANCE [address] [place] [address] Xenia Humphries
--- OUTSIDE RECORDS SUMMARY | 2021-05-03 11:02 | CCD ---
Author Author [facility] Organization [facility] Address Unknown Phone Unavailable Care Team Providers Care Plaster And Stucco Worker Name Role Phone Kathleen Darby Unavailable PROBLEMS Type Condition ICD9-CM Code VRZ56-MU Code Onset Dates Condition S tatus W/U Status Risk SNOMED Code Notes Problem Umbilical abnormality Q89.9 Active confirmed 724656702 Problem Essential hypertension affecting in third tr imester O10.013 Active confirmed 74882404 Problem History of thyroid storm Z86.39 Active confirmed 396500051 Problem Hyperthyroidism E05.90 Active confirmed 3448 6009 Problem Hyperlipidemia E78.5 Active confirmed 10416 004 Problem Supervision of other normal Z34.80 Ac tive confirm [id number] ALLERGIES No Known Allergies ENCOUNTERS from 1992 to 2021-04-11 Encounter Location Date Provider Diagnosis [facility] [facility] [phone] [place] [address] Mar, Kathleen Darby Two vessel umbilical cord, antepartum, single gestation O09.899 ; Essential hypertension affecting in third trimester O10.013 ; 32 weeks gestation of Z3A.32 and Encounter for immunization Z23 IMMUNIZATIONS Vaccine Route Administration Date Status TDAP 0.5mL Boostrix IM Intramuscular Mar 24, 2021 Administere d SOCIAL HISTORY Tobacco Use: Social History Observation Description Date Details (start date - stop date) Never Smoker Sex Assigned At : Social History Observation Description Sex Assigned At Unknown Education: Question Answer Notes Level of Education: Finished College Language: Question Answer Notes Languages spoken: Tajik Episcopalian: Question Answer Notes Episcopalian 33 None Tobacco Use: Question Answer Notes Are you a: never smoker REASON FOR REFERRAL No Information VITAL SIGNS Weight 178 lbs Mar, Weight-kg 80.74 kg Mar, Height 65 in Mar, BMI 29.621 kg/m2 Mar, Blood pressure systolic 130 mm Hg Mar, Blood pressure diastolic 70 mm Hg Mar, MEDICATIONS Medication SIG (Take, Route, Frequency, Duration) Notes Start Da te End Date Status Valtrex 500 MG 1 tablet Orally Once a day for 30 day(s) Mar, Active Aspirin 81 81 MG 1 tablet Orally Once a day for 90 day(s) Mar, Active 28-0.8 MG 1 tablet Orally Once a day Active PROCEDURES from 1992 to 2021-04-11 Procedure Date Ordered Result Body Site Imm: Boostrix 0.5mL IM TDAP 2021-03-24 N/A RESULTS No Results REASON FOR VISIT 2 WK PN MEDICAL (GENERAL) HISTORY Type Description Date Medical History hyperthyroidism Medical History Vaginal HSV-1 Goals Section No Information Health Concerns No Information MEDICAL EQUIPMENT No Information MENTAL STATUS No Information FUNCTIONAL STATUS No Information ASSESSMENTS Encounter Date Diagnosis Assessment Notes Treatment Notes Treatm ent Clinical Notes Mar, Two vessel umbilical cord, a ntepartum, single gestation (ICD-10 - O09.899) Mar, Essential hypertension affec ting in third trimester (ICD- 10 - O10.013) Mar, 32 weeks gestation of (ICD-10 - Z3A.32 ) Mar, Encounter for immunization (ICD-10 - Z23) PLAN OF TREATMENT Treatment Notes Test Name Order Date WW OBS LIMITED 2021-03-24 Next Appt Details 1-2 weeks Reason:COB NST Provider Name:Jane Myers, 2021-03-17 9 02:20:00 PM, [address] [facility], , [place], [address], Follow Up:1-2 weeksCOB NST Insurance Providers Payer Name Payer Address Payer Phone Insured Name Patient Relati onship to Insured Coverage Start Date Coverage End Date [facility] INSURANCE [address] [place] [address] Xenia Humphries
[2021-05-03 11:20] VITALS: BP 134/88
[2021-05-03] MEDS ORDERED: ASPI81CH33 PO (11:26)
[2021-05-03] MEDS ORDERED: VALT500T PO (11:26)
[2021-05-03] MEDS ORDERED: PRENTAB9 PO (11:26)
[2021-05-03 12:01] LABS: HEMATOCRIT 37.5 % (36.0-47.0); HEMOGLOBIN 12.1 g/dl (12.0-15.5); MEAN CORPUSCULAR HEMOGLOBIN 26.5 pg (27.0-33.0); MEAN CORPUSCULAR HGB CONC 32.3 g/dl (32.0-36.5); MEAN CORPUSCULAR VOLUME 82.2 fl (80.0-96.0); PLATELET COUNT, AUTOMATED 232 10^3/uL (150-450); RED BLOOD COUNT 4.56 10^6/uL (4.00-5.40); WHITE BLOOD COUNT 8.7 10^3/uL (4.0-10.0)
[2021-05-03] MEDS ORDERED: OXYTOCIN DRIP 30 UNITS in IV 1 EA IV PRN (12:15)
[2021-05-03] MEDS: miSOPROStol 50MCG 1/2 TABLET PO SCH ×3 (12:38→21:02)
[2021-05-03 13:45] VITALS: BP 124/75
[2021-05-03 14:58] VITALS: BP 132/72
--- NOTE | 2021-05-03 15:31 | HPEPDOC ---
General Date of Admission May 03, 2021 at 10:59 Chief Complaint The patient is a 30-year-old female admitted with a reason for visit of IOL. Home Medications Scheduled Aspirin (Aspirin) 81 Mg Tab.chew, 81 MG PO DAILY for pain, (Reported) No.137/Iron/Folic Acd ( Vitamin Tablet) 1 Each Tablet, 1 TAB PO DAILY, (Reported) Valacyclovir HCl (Valtrex) 500 Mg Tablet, 1 TAB PO DAILY, (Reported) Allergies Coded Allergies: No Known Allergies (Unverified , 01/21/18) Laboratory Data Labs 24H Laboratory Tests 2 05/03/21 11:14: Serology Scanned Report Hepatitis B Testing 05/03/21 11:47: Nucleated Red Blood Cells % (auto) 0.0, Syphilis Serology NONREACTIVE CBC/BMP Laboratory Tests 05/03/21 11:47 ALDO MARIN MD. May 03, 2021 15:31
[2021-05-03 16:29] VITALS: BP 114/62
[2021-05-04] VITALS (25 sets, daily range): BP systolic 111–183; BP diastolic 52–89
[2021-05-04] MEDS: miSOPROStol 50MCG 1/2 TABLET PO SCH (01:55)
--- NOTE | 2021-05-04 04:41 | HPEPDOC ---
Obstetrical History & Physical General Date of Admission May 03, 2021 at 10:59 History of Present Illness 30-year-old G1 at 38 weeks 4 days presents for induction of labor for chronic hypertension. course also remarkable for two-vessel cord. Chief Complaint: Induction of labor Information Provided By: Patient Age: 30 : 1 Care Care: Good Care Dating Final EDC: May 13, 2021 Final EDC by: LMP EGA at Admission: 38 Past Medical History BOTTLE SORTER History: Abnormal Pap, Herpes simplex virus(HSV) Past Medical History Medical History Chronic hypertension Surgical History: Other (LEEP) Social History Marital Status: Psychosocial History: No pertinent psych hx * Smoker: non-smoker Alcohol: Denies Drugs: denies Allergies Coded Allergies: No Known Allergies (Unverified , 01/21/18) Medications Scheduled Aspirin (Aspirin) 81 Mg Tab.chew, 81 MG PO DAILY for pain No.137/Iron/Folic Acd ( Vitamin Tablet) 1 Each Tablet, 1 TAB PO DAILY Valacyclovir HCl (Valtrex) 500 Mg Tablet, 1 TAB PO DAILY Physical Examination Physical Examination GENERAL: Alert and oriented times three. BREAST: . ABDOMEN: Gravid and non-tender to touch. FETUS: Is vertex (VTX) by sterile vaginal examination (SVE), fetus is vertex (VTX) by Wai. HEART RATE: Regular rate and rhythm. LUNGS: Clear to auscultation (CTA). Vital Signs/I&O Vital Signs Date Time Temp Pulse Resp B/P (MAP) Pulse Ox O2 Delivery O2 Flow Rate FiO2 05/03/21 16:29 83 18 114/62 (79) 05/03/21 11:20 98.4 Laboratory Data 24H LABS Laboratory Tests 2 05/03/21 11:14: Serology Scanned Report Hepatitis B Testing 05/03/21 11:47: Nucleated Red Blood Cells % (auto) 0.0, Syphilis Serology NONREACTIVE 05/03/21 17:56: Coronavirus (COVID-19)(PCR) NEGATIVE CBC/BMP Laboratory Tests 05/03/21 11:47 Pertinent Laboratoy Data Blood Type: AB+ RBC Antibody Screen: Negative HIV: Negative Hepatitis B: Negative Hepatitis C: Negative Rapid Plasma Reagin: Nonreactive Rubella: Immune Chlamydia/Gonorrhea: Negative Group B Streptococcus: Negative Glucose Tolerance Test: 134 (3-hour glucose tolerance test within normal limits) Anatomy Ultrasound Placenta Location: Anterior Normal Anatomy: No (Two-vessel umbilical cord. Otherwise normal anatomy ultrasound) Placenta Previa: No Vaginal Examination Dilation: None Station: -3 Cervical Consistency: Firm Cervical Position: Posterior Presentation: Cephalic presentation Assessment Variability: Moderate Accelerations: Positive Decelerations: None Tocometer Contractions: No Assessment/Plan Assessment 30-year-old 1 at 30 weeks 4 days estimated gestational age for induction of labor due to chronic hypertension Reassuring status Plan Admit and orient. Special Procedures Technologist and consent. Group B Streptococcus (GBS) negative. Labs and intravenous (IV) per unit protocol. Counseled on Pitocin and induction of labor (IOL). Anticipate normal spontaneous delivery (). C-S as appropriate. ALDO MARIN MD. May 04, 2021 04:41
[2021-05-04] MEDS ORDERED: OXYTOCIN DRIP 30 UNITS in IV 1 EA IV SCH (08:05)
[2021-05-04] MEDS ORDERED: LR 1,000 ML IV SCH (08:05)
[2021-05-04 09:47] LABS: ALT/SGPT 22 U/L (12-78); BILIRUBIN,TOTAL 0.3 MG/DL (0.2-1.0); CREATININE FOR GFR 0.88 MG/DL (0.55-1.30); GLOMERULAR FILTRATION RATE > 60.0 (>60); LDH LACTATE DEHYDROGENASE 200 U/L (84-246); URIC ACID 5.6 MG/DL (2.6-6.0)
[2021-05-04] MEDS ORDERED: FENTANYL 2MCG/ML ROPIVACAINE 0.2% IN 0.9% NACL 100ML IVBAG As Ordered ONE (17:21)
[2021-05-04] MEDS ORDERED: EPIDURAL COMMENT XX SCH (17:50)
[2021-05-04] MEDS ORDERED: NALOXONE INJ 0.4MG/1ML VIAL (J2310 PER 1MG) IV PRN (17:50)
[2021-05-04] MEDS ORDERED: ONDANSETRON 4MG/2ML VIAL IV PRN (17:50)
[2021-05-04] MEDS ORDERED: ePHEDrine SULFATE 25 MG/5 ML(5MG/ML) SYRINGE IV PRN (17:50)
[2021-05-04] MEDS ORDERED: REFRIGERATOR IV KEYS XX PRN (17:50)
[2021-05-04] MEDS ORDERED: EPIDURAL/PCA KEYS XX PRN (17:50)
[2021-05-04] MEDS ORDERED: LACTATED RINGER'S 1000 ML IV PRN (17:50)
[2021-05-04] MEDS ORDERED: FENTANYL/ROPIVACAINE/NACL BAG 100 ML EPIDURAL SCH (17:50)
[2021-05-04] MEDS ORDERED: diphenhydrAMINE 50MG/ML VIAL (J1200) IV PRN (17:50)
[2021-05-04 18:33] LABS: CORD GAS ABE A -8.6; CORD GAS ABE V -7.2; CORD GAS HCO3 A 22.2 MEQ/L; CORD GAS HCO3 V 21.3 MEQ/L; CORD GAS O2 SAT A 21.7 %; CORD GAS O2 SAT V 43.2 %; CORD GAS PCO2 A 67.2 mmHg; CORD GAS PCO2 V 53.7 mmHg; CORD GAS PH A 7.136 UNITS; CORD GAS PH V 7.217 UNITS; CORD GAS SBC A 15.9 MEQ/L; CORD GAS SBC V 17.4 MEQ/L; CORD GAS TCO2 A 24.2 MEQ/L
[2021-05-04] MEDS ORDERED: DOCUSATE SODIUM 100MG CAPSULE PO PRN (18:50)
[2021-05-04] MEDS ORDERED: DIBUCAINE 1% OINTMENT 30GM TOP PRN (18:50)
[2021-05-04] MEDS ORDERED: IBUPROFEN 800 MG TAB PO PRN (18:50)
[2021-05-04] MEDS ORDERED: MEASLES,MUMPS,RUBELLA VACCINE INJ (MMR-II) (90707) SC SCH (18:50)
[2021-05-04] MEDS ORDERED: ACETAMINOPHEN 500 MG TAB PO PRN (18:50)
[2021-05-04] MEDS ORDERED: RHOGAM 300 MCG (1500 IU) INJ (J2790) IM SCH (18:50)
--- NOTE | 2021-05-04 20:34 | DN ---
DELIVERY NOTE DATE OF DELIVERY: 05/04/2021 Galilea is a 30-year-old 1, para 1-0-0-1, who was admitted to labor and delivery for induction of labor due to chronic hypertension. Misoprostol and intravenous (IV) Pitocin were used, and labor did ensue. She used an epidural after she became fully dilated, because she refused to push without an epidural. She reached full dilation at 1719. She pushed to a normal spontaneous vaginal delivery of a live female in occiput anterior (OA) position with restitution to left occiput transverse (LOT) at 1819. She did have bradycardia down to the 80s. It did reach 90s and the 100s during the second stage. The shoulders delivered spontaneously, and the corpus immediately followed. 's mouth and nares were bulb suctioned. She was crying and active and placed on the maternal abdomen for bonding. Cord was clamped times two and cut by the father of the baby. Cord gases were obtained. Arterial cord pH 7.136 with a base excess of -8.6, venous cord pH of 7.217 with a base excess of -7.2. Cord blood was obtained. Spontaneous expulsion of an intact placenta with 3-vessel cord by Brown mechanism was at 1824. Uterine hemostasis was achieved with IV Pitocin rapid infusion and uterine fundal massage. Estimated blood loss 350 mL. Perineum and vagina inspected and noted to have a first-degree laceration. The laceration was repaired with 3-0 Vicryl Rapide in the usual fashion. female weighed 7 pounds 2 ounces, 3230 grams. scores 9 and 9. Mom is going to breast-feed her daughter, and the family have named her Swati. At the close of delivery, lap counts, needle counts, and instruments counts were correct and verified.
[2021-05-05 06:00] VITALS: BP 98/55
[2021-05-05] MEDS: IBUPROFEN 600MG TAB PO PRN ×2 (06:42→15:33)
[2021-05-05 07:30] VITALS: BP 110/48
[2021-05-05] MEDS: PRENATAL VITAMINS CHEWABLE TABLET PO SCH (07:33)
[2021-05-05 18:00] VITALS: BP 99/48
--- NOTE | 2021-05-05 23:56 | IPNPDOC ---
Text Note Date of Service The patient was seen on 05/05/21. NOTE POST NOTE S: no complaints O: AVSS NAD Abd: NT, FF ext: NT A?P 30 yo s/p routine PP care VS,Fishbone, I+O VS, Fishbone, I+O Vital Signs Date Time Temp Pulse Resp B/P (MAP) Pulse Ox O2 Delivery O2 Flow Rate FiO2 05/05/21 18:00 97.4 99 18 99/48 (65) 98 Room Air I&O- Last 24 Hours up to 6 AM 05/05/21 06:00 Intake Total 2196 ml Output Total 750 ml Balance 1446 ml HERNANDEZ GONCALVES MD May 05, 2021 23:56
[2021-05-06] MEDS: ACETAMINOPHEN TAB 650MG DOSE (2X325MG) PO PRN ×2 (00:04→07:50)
[2021-05-06 06:00] VITALS: BP 116/56
[2021-05-06] MEDS: PRENATAL VITAMINS CHEWABLE TABLET PO SCH (07:49)
== END 2021-05-06 12:45 | disposition home or self-care (01) | DRG 806 ==
LOC: M LDI 10:59 → M OBS 05-04 20:29
PROVIDERS: ADMIT Obstetrics & Gynecology; ATTEND Obstetrics & Gynecology
PROC: 3E0P7GC Introduction of Other Therapeutic Substance into Female Reproductive, Via Natural or Artificial Opening (ICD-10-PCS; 2021-05-03)
PROC: 10E0XZZ Delivery of Products of Conception, External Approach (ICD-10-PCS; principal; 2021-05-04)
PROC: 0HQ9XZZ Repair Perineum Skin, External Approach (ICD-10-PCS; 2021-05-04)
DX: O10.02 Pre-existing essential hypertension complicating childbirth (principal); Z37.0 Single live birth; O98.32 Other infections with a predominantly sexual mode of transmission complicating childbirth; Z3A.38 38 weeks gestation of pregnancy; A60.09 Herpesviral infection of other urogenital tract; Z20.822 Contact with and (suspected) exposure to COVID-19; O76 Abnormality in fetal heart rate and rhythm complicating labor and delivery; O70.0 First degree perineal laceration during delivery